=== PATIENT | male | born 1965 | race Caucasian/White ===

== ENCOUNTER 2019-06-11 07:38 | Day surgery (SDC) | payer BC, OTHER ==
[~2019-06-11] VITALS: Ht 182.9 cm; Wt 86.0 kg
[~2019-06-11 07:38] MED LIST: ALLO300T PO; BIOT1CAP3 PO; CHOL400T55 PO; MULT-658 PO; VALA500T4 PO; VITA1TAB19 PO
[2019-06-11] MEDS ORDERED: LACTATED RINGERS 1,000 ML IV SCH (08:08)
[2019-06-11 08:10] VITALS: BP 119/80
[2019-06-11] MEDS ORDERED: LIDOCAINE-MPF 1%, 2ML INFIL ONE (08:30)
[2019-06-11] MEDS ORDERED: EPINEPHRINE 1 MG/ML, 1ML ONE (09:00)
[2019-06-11] MEDS ORDERED: BUPIVACAINE/PF 0.5% ONE (09:00)
[2019-06-11] MEDS ORDERED: FENTANYL PF 250 MCG/5ML ONE (09:12)
[2019-06-11] MEDS ORDERED: MIDAZOLAM 1 MG/ML, 2ML ONE (09:12)
[2019-06-11] MEDS ORDERED: CEFAZOLIN 1,000 MG ONE (09:36)
[2019-06-11] MEDS ORDERED: PROPOFOL 10 MG/ML, 20ML ONE (09:36)
[2019-06-11] MEDS ORDERED: SUCCINYLCHOLINE 20 MG/ML, 10ML ONE (09:36)
[2019-06-11] MEDS ORDERED: ROCURONIUM 10MG/ML,5ML ONE (09:36)
[2019-06-11] MEDS ORDERED: DEXAMETHASONE 4 MG/ML, 1ML ONE (09:36)
[2019-06-11] MEDS ORDERED: HYDROmorphone 1 MG/ML, 1ML INJ IV PRN (10:00)
[2019-06-11] MEDS ORDERED: ALBUTEROL SULFATE 2.5 MG/3 ML NPPB PRN (10:00)
[2019-06-11] MEDS ORDERED: KETOROLAC 30 MG/1 ML IV PRN (10:00)
[2019-06-11] MEDS ORDERED: MEPERIDINE/PF 25MG/0.5ML IVPush PRN (10:00)
[2019-06-11] MEDS ORDERED: METOCLOPRAMIDE 5 MG/ML, 2ML IV PRN (10:00)
[2019-06-11] MEDS ORDERED: ONDANSETRON 2MG/ML, 2ML IVPush PRN (10:00)
[2019-06-11] MEDS ORDERED: LABETALOL 5MG/ML, 20ML IV PRN (10:00)
[2019-06-11] MEDS ORDERED: PROMETHAZINE 25 MG/ML, 1ML IV PRN (10:00)
[2019-06-11] MEDS ORDERED: hydrALAzine 20 MG/ML, 1ML IV PRN (10:00)
[2019-06-11] MEDS ORDERED: MEPERIDINE/PF 25MG/ML,1ML ONE (11:38)
[2019-06-11] MEDS ORDERED: KETOROLAC 30 MG/1 ML ONE (11:42)
[2019-06-11] MEDS ORDERED: FENTANYL PF 100 MCG/2ML ONE ×2 (11:42→12:10)
[2019-06-11] MEDS: FENTANYL PF 100 MCG/2ML IV PRN ×3 (11:45→12:12)
[2019-06-11] MEDS ORDERED: OXYcodone 5 MG/5 ML ORAL.SOL UDC ONE (12:01)
[2019-06-11] MEDS: OXYcodone 5 MG/5 ML ORAL.SOL UDC PO PRN ×2 (12:03→12:45)
== END 2019-06-11 14:40 | disposition home or self-care (01) ==
LOC: OUT 07:38
PROVIDERS: ATTEND Surgery
DX: K43.6 Other and unspecified ventral hernia with obstruction, without gangrene (principal); K43.9 Ventral hernia without obstruction or gangrene; E78.5 Hyperlipidemia, unspecified; Z72.89 Other problems related to lifestyle; Z85.828 Personal history of other malignant neoplasm of skin; Z98.890 Other specified postprocedural states
CPT/HCPCS: 49653; C1781; J0171; J0330; J0690; J1100; J1885; J2175; J2250; J2704; J3010; S2900